=== PATIENT | male | born 1970 | race Caucasian/White ===

== ENCOUNTER 2018-12-12 09:45 | Outpatient (RCR) | payer BC | END 2018-12-15 | LOC: M OT 09:45 | PROVIDERS: ATTEND Emergency Medicine | DX: I63.9 Cerebral infarction, unspecified (principal) ==

== ENCOUNTER 2019-01-04 09:44 | Outpatient (RCR) | payer BC ==
[2019-01-06] MEDS ORDERED: LANTINJ4 SC (19:05)
[2019-01-06] MEDS ORDERED: PLAV1TAB2 PO (19:05)
[2019-01-06] MEDS ORDERED: METF500T13 PO (19:05)
[2019-01-06] MEDS ORDERED: ATOR80TA59 PO (19:05)
[2019-01-06] MEDS ORDERED: IRBE75TA5 PO (19:05)
[2019-01-06] MEDS ORDERED: ASPI1TAB20 PO (19:05)
[2019-01-06] MEDS ORDERED: MAGN400T2 PO (19:05)
[2019-01-06] MEDS ORDERED: FLOM0.4C39 PO (19:05)
[2019-01-06] MEDS ORDERED: DITR5TAB PO (19:05)
[2019-01-06] MEDS ORDERED: D 101000 PO (19:05)
[2019-01-06] MEDS ORDERED: MELA3TAB49 PO (19:05)
[2019-01-06] MEDS ORDERED: ROBA750T4 PO (19:05)
[2019-01-06] MEDS ORDERED: NORV5TAB PO (19:05)
[2019-01-06] MEDS ORDERED: FLUO20CA19 PO (19:05)
[2019-01-06] MEDS ORDERED: LOSA50TA88 PO (21:16)
[2019-01-06] MEDS ORDERED: MELA3TAB41 PO (21:16)
[2019-01-06] MEDS ORDERED: CHOL50002 PO (21:16)
[2019-01-06] MEDS ORDERED: HUMA100I5 SC (21:16)
[2019-01-07] MEDS ORDERED: CLOP75TA2 PO (14:54)
[2019-01-07] MEDS ORDERED: ASPI81TA85 PO (16:20)
== END 2019-01-14 ==
LOC: M OT 09:44
PROVIDERS: ATTEND Emergency Medicine
DX: I63.9 Cerebral infarction, unspecified (principal)

== ENCOUNTER 2019-01-06 18:17 | Observation (INO) | payer BC ==
[~2019-01-06] VITALS: Ht 182.9 cm; Wt 124.8 kg
[2019-01-06 18:56] LABS: BASO % 0.4 % (0.0-1.0); EOS # 0.1 10^3/uL (0.0-0.50); EOS % 1.8 % (0.0-3.0); HEMATOCRIT 38.2 % (42.0-52.0); HEMOGLOBIN 12.8 g/dl (13.5-17.5); LYMPH # 2.9 10^3/uL (1.5-4.5); LYMPH % 37.7 % (24.0-44.0); MEAN CORPUSCULAR HEMOGLOBIN 28.6 pg (27.0-33.0); MEAN CORPUSCULAR HGB CONC 33.5 g/dl (32.0-36.5); MEAN CORPUSCULAR VOLUME 85.3 fl (80.0-96.0); MONO # 0.4 10^3/uL (0.0-0.8); MONO % 5.1 % (0.0-5.0); NEUTROPHILS # 4.2 10^3/uL (1.8-7.7); NEUTROPHILS % 54.5 % (36.0-66.0); PLATELET COUNT, AUTOMATED 212 10^3/uL (150-450); RED BLOOD COUNT 4.48 10^6/uL (4.30-6.10); WHITE BLOOD COUNT 7.7 10^3/uL (4.0-10.0)
[2019-01-06] MEDS ORDERED: METF500T13 PO (19:05)
[2019-01-06] MEDS ORDERED: FLUO20CA19 PO (19:05)
[2019-01-06] MEDS ORDERED: LANTINJ4 SC (19:05)
[2019-01-06] MEDS ORDERED: D 101000 PO (19:05)
[2019-01-06] MEDS ORDERED: MELA3TAB49 PO (19:05)
[2019-01-06] MEDS ORDERED: IRBE75TA5 PO (19:05)
[2019-01-06] MEDS ORDERED: FLOM0.4C39 PO (19:05)
[2019-01-06] MEDS ORDERED: ASPI1TAB20 PO (19:05)
[2019-01-06] MEDS ORDERED: ATOR80TA59 PO (19:05)
[2019-01-06] MEDS ORDERED: MAGN400T2 PO (19:05)
[2019-01-06] MEDS ORDERED: PLAV1TAB2 PO (19:05)
[2019-01-06] MEDS ORDERED: ROBA750T4 PO (19:05)
[2019-01-06] MEDS ORDERED: NORV5TAB PO (19:05)
[2019-01-06] MEDS ORDERED: DITR5TAB PO (19:05)
[2019-01-06 19:07] LABS: INR 1.08; PROTHROMBIN TIME 13.7 SECONDS (11.8-14.0)
[2019-01-06 19:08] LABS: PARTIAL THROMBOPLASTIN TIME 44.9 SECONDS (25.0-38.4)
[2019-01-06 19:25] LABS: BLOOD UREA NITROGEN 21 MG/DL (7-18); CALCIUM LEVEL 8.8 MG/DL (8.5-10.1); CARBON DIOXIDE LEVEL 27 MEQ/L (21-32); CHLORIDE LEVEL 108 MEQ/L (98-107); CK-MB VALUE MASS < 1.0 NG/ML (<3.6); CPK CREATINE PHOSPHOKINASE 122 U/L (39-308); CREATININE FOR GFR 0.92 MG/DL (0.70-1.30); GLOMERULAR FILTRATION RATE > 60.0 (>60); GLUCOSE, FASTING 94 MG/DL (70-100); MB/CK RELATIVE INDEX 0.82 (< OR =4); POTASSIUM SERUM 3.8 MEQ/L (3.5-5.1); SODIUM LEVEL 141 MEQ/L (136-145); TROPONIN I < 0.02 NG/ML (< 0.10)
--- NOTE | 2019-01-06 19:43 | REPVR ---
EXAM: CT Head Without Contrast EXAM DATE/TIME: 01/06/2019 6:36 PM CLINICAL HISTORY: 48 years old, male; Altered mental status/memory loss and visual disturbance; Additional info: CVA - nursing interventions must not delay CT TECHNIQUE: Imaging protocol: Axial computed tomography images of the head without contrast. Radiation optimization: All CT scans at this facility use at least one of these dose optimization techniques: automated exposure control; mA and/or kV adjustment per patient size (includes targeted exams where dose is matched to clinical indication); or iterative reconstruction. Other technique: With associated atrophy. There is no evidence of mass effect. PROTOCOL was implemented. COMPARISON: No relevant prior studies available. FINDINGS: Brain: There is no evidence of intracranial bleed. There is CSF low density involving the right temporal lobe, insular cortex, frontal lobe and right basal ganglia region. This is consistent with a large area of old stroke with associated atrophy. This may be associated with the previous surgery. Ventricles: There is enlargement of the right lateral ventricle consistent with focal atrophy. Bones/joints: There is no evidence of fracture. Sinuses: Visualized sinuses are unremarkable. No fluid levels. Mastoid air cells: There is a sclerosis of the mastoid air cells consistent with previous mastoiditis. Soft tissues: Unremarkable. Vasculature: There is any aneurysm clip at the right distal internal carotid artery. IMPRESSION: 1. Aneurysm clip at the [place] on the right. 2. Large area of old ischemic change with associated atrophy. Electronically signed by: Dale Maguire On 01/06/2019 19:42:49 PM
[2019-01-06] MEDS ORDERED: LEVEMIR (INSULIN DETEMIR) 1 UNITS/0.01ML SC SCH (21:00)
[2019-01-06] MEDS ORDERED: TAMSULOSIN 0.4 MG CAP PO SCH (21:00)
[2019-01-06] MEDS ORDERED: oxyBUTYnin *DITROPAN XL* 5 MG TABCR PO SCH (21:00)
[2019-01-06] MEDS ORDERED: LOSARTAN 50 MG TAB PO SCH (21:00)
[2019-01-06] MEDS ORDERED: MAGNESIUM OXIDE 400 MG TAB (MAG-OX) PO SCH (21:00)
[2019-01-06] MEDS ORDERED: HumaLOG INSULIN (NovoLOG) PER UNIT SC SCH (21:00)
[2019-01-06] MEDS ORDERED: FLUoxetine 20 MG CAP PO SCH (21:00)
[2019-01-06] MEDS ORDERED: CHOL50002 PO (21:16)
[2019-01-06] MEDS ORDERED: LOSA50TA88 PO (21:16)
[2019-01-06] MEDS ORDERED: MELA3TAB41 PO (21:16)
[2019-01-06] MEDS ORDERED: HUMA100I5 SC (21:16)
[2019-01-06] MEDS ORDERED: DEXTROSE 50% 50 ML SYRINGE IV PRN (21:45)
[2019-01-06] MEDS ORDERED: GLUCAGON FOR INJ 1 MG VIAL (J1610) SC PRN (21:45)
[2019-01-06] MEDS ORDERED: METHOCARBAMOL 750 MG TAB PO PRN (21:45)
[2019-01-06] MEDS ORDERED: GLUCOSE 4 GM CHEW TABLET PO PRN (21:45)
[2019-01-06 21:50] VITALS: BP 138/82
--- NOTE | 2019-01-06 22:19 | HPEPDOC ---
General Date of Admission Jan 06, 2019 at 20:47 Date of Service: Jan 06, 2019 Chief Complaint The patient is a 48-year-old male admitted with a reason for visit of TIA. Source: Patient, Old records Exam Limitations: No limitations Severity: Moderate History of Present Illness 48 year ofd male with hypertension, diabetes type 2 insulin dependent, morbid obesity BMI 37.3, restless leg syndrome, vit d deficiency, , hyperlipidemia recent Right MCA territory ischemic stroke in May 2018 with residual left sided hemiparesis, felt to be cardioembolic, has a PFO as per patient , recently had a loop recorder placed on 12/21/18 present to our ED with acute onset bilateral lower visual field vision loss which happened at about 5 pm today. This lasted for about 3 and half hours then his vision came back at around 7:30 pm. He said that he sneezed and then lost his vision and then he had a big yawn in the E when the vision came back. He did not have any increased weakness of his left se or any other weakness. He did not have any palpitation or chest pain. Did not have any slurring of speech or difficulty in understanding. This is his 3rd episode of similar symptoms but the longest in duration. First time it happed in the beginning of May before he had his stroke lasted about 10 mins. second one was about 3 weeks ago lasted about [address] head done during the episode which showed the old stroke in the. right temporal, parietal and occipital lobes in the Right MCA territory distribution but no new events. This was discussed with the stroke centre in [facility] by [facility] ED physician and they were planning to thrombolize hime when his vision came back and it was felt to be a TIA. Consult our neurologist and requested MRI and MRA as per his reccomendations. Pateint is Admitted for TIA. Home Medications Scheduled Amlodipine Besylate (Norvasc) 5 Mg Tablet, 5 MG PO DAILY, (Reported) Aspirin (Aspirin) 325 Mg Tablet, 325 MG PO DAILY, (Reported) Atorvastatin Calcium (Atorvastatin Calcium) 80 Mg Tablet, 80 MG PO DAILY, (Reported) Cholecalciferol (Vitamin D3) (Vitamin D3) 5,000 Unit Capsule, 5,000 UNIT PO DAILY, (Reported) Fluoxetine Hcl (Fluoxetine HCl) 20 Mg Capsule, 20 MG PO QHS, (Reported) Insulin Glargine,Hum.rec.anlog (Lantus Solostar) 100 Unit/1 Ml Insuln.pen, 45 UNIT SC QPM, (Reported) Insulin Lispro (Humalog Kwikpen U-100) 100 Unit/1 Ml Insuln.pen, 1 DOSE SC WM, (Reported) SLIDING SCALE Losartan Potassium (Losartan Potassium) 50 Mg Tablet, 50 MG PO QHS, (Reported) Magnesium Oxide (Magnesium Oxide) 400 Mg Tablet, 400 MG PO QHS, (Reported) Metformin HCl (Metformin HCl) 500 Mg Tablet, 1,000 MG PO QHS, (Reported) Oxybutynin Chloride (Ditropan Xl) 5 Mg Tab.er.24, 5 MG PO QHS, (Reported) Tamsulosin HCl (Flomax) 0.4 Mg Capsule, 0.4 MG PO QHS, (Reported) Scheduled PRN Melatonin (Melatonin) 3 Mg Tablet, 3 MG PO QHS PRN for SLEEP, (Reported) Methocarbamol (Robaxin-750) 750 Mg Tablet, 750 MG PO TID PRN for MUSCLE SPASMS, (Reported) Allergies Coded Allergies: bee venom protein (honey bee) (Verified Allergy, Severe, ANAPHYLAXIS, 01/06/19) Past Medical History Medical History hypertension, diabetes type 2 insulin dependent, morbid obesity BMI 37.3, restless leg syndrome, vit d deficiency, , hyperlipidemia recent Right MCA territory ischemic stroke in May 2018 with residual left sided hemiparesis, Surgical History loop recorder placement on 12/21/18 Attempted Mechanical thrombectomy for stroke in 2017. Balloon angioplasty and stent placement seems to be in the right distal internal carotid artery Hernia surgery as a child Family History Significant Family History: Cancer (father), Diabetes (mother), Heart disease (father and mother) Social History * Smoker: non-smoker Alcohol: Denies Drugs: denies A-FIB/CHADSVASC A-FIB History Current/History of A-Fib/PAF?: No Review of Systems Constitutional: Denies: Chills, Fever, Night Sweats Eyes: Reports: Vision change (transient loss of lower field of vision in both eyes); Denies: Pain ENT: Denies: Head Aches, Ear Pain, Dysphagia Skin: Denies: Rash, Lesions, Breakdown Pulmonary: Denies: Dyspnea, Cough Cardiovascular: Denies: Chest Pain, Palpitations, Orthopnea, Paroxysmal Noc. Dyspnea, Lt Headedness Gastrointestinal: Denies: Nausea, Vomiting, Abdominal Pain, Diarrhea Genitourinary: Denies: Dysuria, Frequency, Incontinence, Retention Hematologic: Denies: Bruising, Bleeding Excessively Musculoskeletal: Reports: Muscle Pain, Spasms Neurological: Reports: Weakness (left side left upper extremity more than left lower extremity), Numbness; Denies: Change in speech, Confusion, Seizures Psych: Reports: Anxiety Physical Examination General Exam: Positive: Alert, Cooperative, No Acute Distress Eye Exam: Positive: PERRLA, Conjunctiva & lids normal, EOMI; Negative: Sclera icteric ENT Exam: Positive: Atraumatic, Mucous membr. moist/pink, Pharynx Normal Neck Exam: Positive: Supple; Negative: JVD, thyromegaly Chest Exam: Positive: Clear to auscultation, Normal air movement, Other (a bruise noted on the precordial area related to the loop recorder placement) Heart Exam: Positive: Rate Normal, Regular Rhythm, Normal S1, Normal S2; Negative: Murmurs, Rubs Telemetry: Positive: No significant arrhythmia Abdomen Exam: Positive: Normal bowel sounds, Soft; Negative: Tenderness, Hepatospenomegaly Extremity Exam: Positive: Normal pulses; Negative: Clubbing, Cyanosis, Edema Skin Exam: Positive: Nl turgor and temperature; Negative: Breakdown, Lesion Neuro Exam: Positive: Normal Speech, Normal Tone, Other (left power upper 3/5 , left lower power 4/5, left foot drop, ) Psych Exam: Positive: Anxiety, Memory Intact, Oriented x 3 Vital Signs Vital Signs Date Time Temp Pulse Resp B/P (MAP) Pulse Ox O2 Delivery O2 Flow Rate FiO2 01/06/19 19:32 68 94 01/06/19 19:30 138/86 (103) 01/06/19 19:02 20 01/06/19 18:18 97.6 Room Air Laboratory Data Labs 24H Laboratory Tests 2 01/06/19 18:43: Immature Granulocyte % (Auto) 0.5, White Blood Count 7.7, Red Blood Count 4.48, Hemoglobin 12.8L, Hematocrit 38.2L, Mean Corpuscular Volume 85.3, Mean Corpuscular Hemoglobin 28.6, Mean Corpuscular Hemoglobin Concent 33.5, Red Cell Distribution Width 13.6, Platelet Count 212, Neutrophils (%) (Auto) 54.5, Lymph ocytes (%) (Auto) 37.7, Monocytes (%) (Auto) 5.1H, Eosinophils (%) (Auto) 1.8, Basophils (%) (Auto) 0.4, Neutrophils # (Auto) 4.2, Lymphocytes # (Auto) 2.9, Monocytes # (Auto) 0.4, Eosinophils # (Auto) 0.1, Basophils # (Auto) 0.0, Nucleated Red Blood Cells % (auto) 0.0, Prothrombin Time 13.7, Prothromb Time International Ratio 1.08, Activated Partial Thromboplast Time 44.9H, Anion Gap 6L, Glomerular Filtration Rate > 60.0, Blood Urea Nitrogen 21H, Creatinine 0.92, Sodium Level 141, Potassium Level 3.8, Chloride Level 108H, Carbon Dioxide Level 27, Calcium Level 8.8, Total Creatine Kinase 122, Creatine Kinase MB < 1.0, Creatine Kinase MB Relative Index 0.82, Troponin I < 0.02 01/06/19 18:53: Bedside Glucose (Misc Panel) 90 01/06/19 21:16: Bedside Glucose (Misc Panel) 83 CBC/BMP Laboratory Tests 01/06/19 18:43 Red Blood Count 4.48, Mean Corpuscular Volume 85.3, Mean Corpuscular Hemoglobin 28.6, Mean Corpuscular Hemoglobin Concent 33.5, Red Cell Distribution Width 13.6, Neutrophils (%) (Auto) 54.5, Lymphocytes (%) (Auto) 37.7, Monocytes (%) (Auto) 5.1 H, Eosinophils (%) (Auto) 1.8, Basophils (%) (Auto) 0.4, Neutrophils # (Auto) 4.2, Lymphocytes # (Auto) 2.9, Monocytes # (Auto) 0.4, Eosinophils # (Auto) 0.1, Basophils # (Auto) 0.0, Calcium Level 8.8, Total Creatine Kinase 122 Assessment/Plan 48 year ofd male with hypertension, diabetes type 2 insulin dependent, morbid obesity BMI 37.3, restless leg syndrome, vit d deficiency, , hyperlipidemia recent Right MCA territory ischemic stroke in May 2018 with residual left sided hemiparesis, felt to be cardioembolic, has a PFO as per patient , recently had a loop recorder placed on 12/21/18 present to our ED with acute onset bilateral lower visual field vision loss which happened at about 5 pm today. This lasted for about 3 and half hours then his vision came back at around 7:30 pm. He said that he sneezed and then lost his vision and then he had a big yawn in the E when the vision came back. He did not have any increased weakness of his left se or any other weakness. He did not have any palpitation or chest pain. Did not have any slurring of speech or difficulty in understanding. This is his 3rd episode of similar symptoms but the longest in duration. First time it happed in the beginning of May before he had his stroke lasted about 10 mins. second one was about 3 weeks ago lasted about [address] head done during the episode which showed the old stroke in the. right temporal, parietal and occipital lobes in the Right MCA territory distribution but no new events. This was discussed with the stroke centre in [facility] by [facility] ED physician and they were planning to thrombolize hime when his vision came back and it was felt to be a TIA. Consult our neurologist and requested MRI and MRA as per his reccomendations. Pateint is Admitted for TIA. TIA looks like he was having quadrantopia he could not say whether right side or left side he said all of the lower visual field was lost possibly from the optic tract will get MRI and MRA Consult neurology continue ASA, plavix, statin. Monitor on telemetry Right MCA territory stroke with a core infarct in the right basal ganglia with a large area of penumbra With residual left hemiparesis Happened in May 2019 s/p unsuccessful thrombectomy s/p angioplasty and stent placement in th distal internal carotid artery thought to be cardioembolic has a recent loop recorder implantation on 12/21/18 patient says he has a PFO. he did get a ZITA this month on 12/18/18. No records available at present. Diabetes type 2, insulin dependent levemir and lispro hold metformin Hypertension continue home meds Hyperlipidemia continue statin Plan / VTE VTE Prophylaxis Ordered?: Yes COTY WELLER MD Jan 06, 2019 22:19
[2019-01-07 04:00] VITALS: BP 115/68
[2019-01-07 05:21] LABS: BASO % 0.5 % (0.0-1.0); EOS # 0.2 10^3/uL (0.0-0.50); EOS % 2.6 % (0.0-3.0); HEMATOCRIT 36.4 % (42.0-52.0); LYMPH # 3.3 10^3/uL (1.5-4.5); LYMPH % 42.3 % (24.0-44.0); MEAN CORPUSCULAR HEMOGLOBIN 27.6 pg (27.0-33.0); MEAN CORPUSCULAR VOLUME 83.9 fl (80.0-96.0); MONO # 0.5 10^3/uL (0.0-0.8); MONO % 6.4 % (0.0-5.0); NEUTROPHILS # 3.8 10^3/uL (1.8-7.7); NEUTROPHILS % 47.9 % (36.0-66.0); PLATELET COUNT, AUTOMATED 207 10^3/uL (150-450); RED BLOOD COUNT 4.34 10^6/uL (4.30-6.10); WHITE BLOOD COUNT 7.8 10^3/uL (4.0-10.0)
[2019-01-07 05:42] LABS: BLOOD UREA NITROGEN 20 MG/DL (7-18); CARBON DIOXIDE LEVEL 27 MEQ/L (21-32); CHLORIDE LEVEL 108 MEQ/L (98-107); GLOMERULAR FILTRATION RATE > 60.0 (>60); GLUCOSE, FASTING 85 MG/DL (70-100); POTASSIUM SERUM 3.6 MEQ/L (3.5-5.1); SODIUM LEVEL 142 MEQ/L (136-145)
--- NOTE | 2019-01-07 07:04 | ECGEPIP ---
[facility] - ED Test Date: 2019-01-06 Pat Name: MATA COLLAZO Department: Room: - Gender: Male Manager Hospice: TC : 1970 Requested By: MARY Teixeira Order Number: [id number] Reading MD: Tino Rios Measurements Intervals [place] Rate: 68 P: 39 WV: 232 QRS: 20 QRSD: 96 T: 42 QT: 386 QTc: 412 Interpretive Statements SINUS RHYTHM WITH FIRST DEGREE AV BLOCK NO PRIORS FOR COMPARISON Electronically Signed on 01-07-2019 7:04:25 EDT by Tino Rios
[2019-01-07] MEDS: HumaLOG INSULIN (NovoLOG) PER UNIT SC SCH ×2 (07:30→12:00)
--- NOTE | 2019-01-07 07:52 | REP ---
Portable chest, 06:37 p.m., single AP view with the patient sitting: There are no comparisons. The lung ledezma are clear. The cardiac size is normal. The leslie, mediastinum, and skeletal structures are unremarkable. Impression: Negative portable chest. A loop recorder is incidentally identified. Electronically Signed by Joni Sanchez MD 01/07/2019 07:44 A
[2019-01-07 08:00] VITALS: BP 114/66
[2019-01-07 09:00] VITALS: BP 114/66
[2019-01-07] MEDS ORDERED: ATORVASTATIN 20 MG TAB PO SCH (09:00)
[2019-01-07] MEDS ORDERED: ASPIRIN 325 MG TAB PO SCH (09:00)
[2019-01-07] MEDS ORDERED: ENOXAPARIN 40 MG/0.4 ML SYRINGE (J1650) SC SCH (09:00)
[2019-01-07] MEDS ORDERED: amLODIPine 5 MG TAB PO SCH (09:00)
--- NOTE | 2019-01-07 13:04 | REPVR ---
EXAM: MR Head Without Contrast EXAM DATE/TIME: 01/07/2019 12:33 PM CLINICAL HISTORY: 48 years old, male; Alteration of consciousness and altered mental status/memory loss; Transient alteration of awareness; Confusion or disorientation; Prior surgery; Surgery date: 1-6 months; Surgery type: Coil in brain, cleared for mri; Patient HX: Hxhx multiple CVA; Additional info: TIA TECHNIQUE: Imaging protocol: MR of the head without contrast. COMPARISON: CT Head without contrast 01/06/2019 6:28 PM FINDINGS: Brain: There is high signal abnormality within the right basal ganglia on the diffusion images. It is difficult to distinguish acute/subacute infarct from chronic gliotic changes with T2 shine through. There are scattered nonspecific foci of high signal abnormality in the lawton radiata and centrum semiovale. These are best seen on the flair images. These foci may represent areas of gliosis, demyelination, and/or chronic ischemic change. There is moderate encephalomalacia in the right basal ganglia, correlate with prior hemorrhage or infarct. Ventricles: Normal. No ventriculomegaly. Bones/joints: Unremarkable. Soft tissues: Normal. Sinuses: Normal as visualized. No acute sinusitis. Mastoid air cells: Normal as visualized. No mastoid effusion. Orbits: Unremarkable. Middle cerebral arteries: There is a stent within the right middle cerebral artery, please correlate with surgical history. IMPRESSION: 1. There is high signal abnormality within the right basal ganglia on the diffusion images. It is difficult to distinguish acute/subacute infarct from chronic gliotic changes with T2 shine through. Direct comparison to prior studies would help distinguish these two possibilities. 2. There are scattered nonspecific foci of high signal abnormality in the [place] radiata and centrum semiovale. These are best seen on the flair images. These foci may represent areas of gliosis, demyelination, and/or chronic ischemic change. 3. There is moderate encephalomalacia in the right basal ganglia, correlate with prior hemorrhage or infarct. 4. There is a stent within the right middle cerebral artery, please correlate with surgical history. Electronically signed by: Hernandez Monsivais On 01/07/2019 13:04:12 PM
--- NOTE | 2019-01-07 13:07 | IPNPDOC ---
Text Note Date of Service The patient was seen on 01/07/19. NOTE S: patient states back to baseline and wants to go home. Awaiting neurology consult. Being seen for TIA and HTN. Blood pressures improved. no further visual deficits. O: vitals as below General: pleasant, NAD AAOx3 HEENT: no vision field deficits, subtle left lower mouth droop(chronic per patient) HRRR LCTA Skin: bruise along left ant pectoralis muscle from loop recorder implantation. Ext: left upper extremity flaccid (chronic); RUE, bilateral lower extremity strength intact A/P: TIA - OBSERVATION Await neuro consult and if agrees, d/c home today as patient is being aggressively worked up as outpatient MRI/MRA pending Continue ASA,Plavix,statin S/P Right MCA territory stroke with a core infarct in the right basal ganglia with a large area of penumbra With residual left hemiparesis - occured May 2018 s/p unsuccessful thrombectomy s/p angioplasty and stent placement in th distal internal carotid artery thought to be cardioembolic has a recent loop recorder implantation on 12/21/18 patient says he has a PFO. he did get a ZIAT this month on 12/18/18. Outpatient work up in progress. 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 well controlled with levemir, SSI; hold metformin Item Value Date Time Bedside Glucose (Misc Panel) 96 MG/DL 01/07/19 1142 Bedside Glucose (Misc Panel) 145 MG/DL H 01/06/19 2303 Bedside Glucose (Misc Panel) 83 MG/DL 01/06/19 2116 Bedside Glucose (Misc Panel) 90 MG/DL 01/06/19 1853 Hypertension continue home meds with hold parameters to avoid hypotension Hyperlipidemia Anticipate d/c home today if okay with nuerology VS,Fishbone, I+O VS, Fishbone, I+O Laboratory Tests 01/06/19 18:43 Red Blood Count 4.48, Mean Corpuscular Volume 85.3, Mean Corpuscular Hemoglobin 28.6, Mean Corpuscular Hemoglobin Concent 33.5, Red Cell Distribution Width 13.6, Neutrophils (%) (Auto) 54.5, Lymphocytes (%) (Auto) 37.7, Monocytes (%) (Auto) 5.1 H, Eosinophils (%) (Auto) 1.8, Basophils (%) (Auto) 0.4, Neutrophils # (Auto) 4.2, Lymphocytes # (Auto) 2.9, Monocytes # (Auto) 0.4, Eosinophils # (Auto) 0.1, Basophils # (Auto) 0.0, Calcium Level 8.8, Total Creatine Kinase 122 01/07/19 04:42 Red Blood Count 4.34, Mean Corpuscular Volume 83.9, Mean Corpuscular Hemoglobin 27.6, Mean Corpuscular Hemoglobin Concent 33.0, Red Cell Distribution Width 13.4, Neutrophils (%) (Auto) 47.9, Lymphocytes (%) (Auto) 42.3, Monocytes (%) (A uto) 6.4 H, Eosinophils (%) (Auto) 2.6, Basophils (%) (Auto) 0.5, Neutrophils # (Auto) 3.8, Lymphocytes # (Auto) 3.3, Monocytes # (Auto) 0.5, Eosinophils # (Auto) 0.2, Basophils # (Auto) 0.0, Calcium Level 9.0 Vital Signs Date Time Temp Pulse Resp B/P (MAP) Pulse Ox O2 Delivery O2 Flow Rate FiO2 01/07/19 09:00 61 114/66 01/07/19 08:00 97.5 16 96 01/06/19 18:18 Room Air I&O- Last 24 Hours up to 6 AM 01/07/19 06:00 Intake Total 360 ml Output Total 0 ml Balance 360 ml FIDENCIO MCCLOUD DO Jan 07, 2019 12:52
--- NOTE | 2019-01-07 13:16 | REPVR ---
EXAM: MR Angiogram Head Without Contrast, Arteries EXAM DATE/TIME: 01/07/2019 12:33 PM CLINICAL HISTORY: 48 years old, male; Cognitive deficit; Type not specified; Prior surgery; Surgery date: 1-6 months; Surgery type: Coil in brain cleared for scan; Patient HX: HX multiple CVA; Additional info: TIA TECHNIQUE: Imaging protocol: MR angiogram head without contrast. Exam focused on the arteries. COMPARISON: CT Head without contrast 01/06/2019 6:28 PM FINDINGS: Right internal carotid artery: There is a high grade stenosis of the supraclinoid right internal carotid artery just proximal to the right right middle cerebral artery stent. Right anterior cerebral artery: Unremarkable. No occlusion or significant stenosis. No aneurysm. Right middle cerebral artery: There is diminished flow signal within the right middle cerebral artery which corresponds to patient's known stent. There is asymmetric decreased flow signal throughout the distal right middle cerebral artery branches. This may be chronic considering the extensive encephalomalacia within the right basal ganglia/middle cerebral artery territory. Right posterior cerebral artery: Unremarkable. No occlusion or significant stenosis. No aneurysm. Right vertebral artery: Unremarkable. No occlusion or significant stenosis. No aneurysm. Left internal carotid artery: Unremarkable. Intracranial segment is patent with no significant stenosis. No aneurysm. Left anterior cerebral artery: Unremarkable. No occlusion or significant stenosis. No aneurysm. Left middle cerebral artery: Unremarkable. No occlusion or significant stenosis. No aneurysm. Left posterior cerebral artery: Unremarkable. No occlusion or significant stenosis. No aneurysm. Left vertebral artery: The patient is left vertebral artery dominant. Basilar artery: Unremarkable. No occlusion or significant stenosis. No aneurysm. Brain: There is encephalomalacia in the right basal ganglia. IMPRESSION: 1. There is diminished flow signal within the right middle cerebral artery which corresponds to patient's known stent. 2. There is asymmetric decreased flow signal throughout the distal right middle cerebral artery branches. This may be chronic considering the extensive encephalomalacia within the right basal ganglia/middle cerebral artery territory. Direct comparison to prior angiogram study is recommended. The possibility that this is an acute finding cannot be excluded based on this single exam. 3. There is a high grade stenosis of the supraclinoid right internal carotid artery just proximal to the right right middle cerebral artery stent. Direct comparison to prior studies is recommended. 4. There is encephalomalacia in the right basal ganglia. Please refer to contemporaneous report of brain MRI for additional details. Electronically signed by: Hernandez Monsivais On 01/07/2019 13:16:24 PM
[2019-01-07] MEDS ORDERED: HumaLOG INSULIN (NovoLOG) PER UNIT SC ONE (14:00)
[2019-01-07] MEDS ORDERED: CLOP75TA2 PO (14:54)
--- NOTE | 2019-01-07 15:37 | DS.PDOC ---
Discharge Summary General Date of Admission Jan 06, 2019 at 20:47 Date of Discharge 01/07/19 Attending Physician: FIDENCIO MCCLOUD DO Specialist/Consultants Involve: MICHAEL HERRING MD Discharge Summary PROCEDURES PERFORMED DURING STAY: none ADMITTING DIAGNOSES: TIA s/p Right MCA territory stroke with a core infarct in the right basal ganglia with a large area of penumbra - prior to admission PFO Diabetes type 2, insulin dependent Hypertension Hyperlipidemia DISCHARGE DIAGNOSES: 1. TIA 2. history of Right MCA territory stroke 3. Diabetes on [facility] insulin, with no hyperglycemia, no hypoglycemia COMPLICATIONS/CHIEF COMPLAINT: TIA. HISTORY OF PRESENT ILLNESS: 48 yo male with history of PFO and CVA 05/2018, who lost lower have of his vision for 3.5 hours and spontaneously returned prior to receiving tPA. He states first episode occurred in may 2018, second similar episode lasting under 30 minutes occurred 3 weeks ago. See H&P for furt her details. HOSPITAL COURSE: Patient was placed in observation with serial neuro checks. prior to admission, his symptoms resolved and did not reoccur. He had CT scan and MRI,MRA performed (see below). Neurology consulted and recommended ASA/Plavix and advised that he could be discharge to follow up with his outpatient neurologist. Patient had been on 81mg ASA prior to admission. Patient had outpatient neurology/cardiology plan of care for continued workup of his CVA. Patient has loop recorder. He is being discharge in stable and improved condition and will follow up with outpatient nuerology, cardiology and PCP for continued CVA workup. DISCHARGE MEDICATIONS: Please see below. ALLERGIES: Please see below. PHYSICAL EXAMINATION ON DISCHARGE: VITAL SIGNS: Please see below. General: pleasant, NAD AAOx3 HEENT: no vision field deficits, subtle left lower mouth droop(chronic per patient) HRRR LCTA Skin: bruise along left ant pectoralis muscle from loop recorder implantation. Ext: left upper extremity flaccid (chronic); RUE, bilateral lower extremity strength intact LABORATORY DATA: Please see below. IMAGING: CT head done during the episode which showed the old stroke in the right temporal, parietal and occipital lobes in the Right MCA territory distribution but no new events. MRI brain IMPRESSION: 1. There is high signal abnormality within the right basal ganglia on the diffusion images. It is difficult to distinguish acute/subacute infarct from chronic gliotic changes with T2 shine through. Direct comparison to prior studies would help distinguish these two possibilities. 2. There are scattered nonspecific foci of high signal abnormality in the lawton radiata and centrum semiovale. These are best seen on the flair images. These foci may represent areas of gliosis, demyelination, and/or chronic ischemic change. 3. There is moderate encephalomalacia in the right basal ganglia, correlate with prior hemorrhage or infarct. 4. There is a stent within the right middle cerebral artery, please correlate with surgical history. MRA BRAIN: 1. There is diminished flow signal within the right middle cerebral artery which corresponds to patient's known stent. 2. There is asymmetric decreased flow signal throughout the distal right middle cerebral artery branches. This may be chronic considering the extensive encephalomalacia within the right basal ganglia/middle cerebral artery territory. Direct comparison to prior angiogram study is recommended. The possibility that this is an acute finding cannot be excluded based on this single exam. 3. There is a high grade stenosis of the supraclinoid right internal carotid artery just proximal to the right right middle cerebral artery stent. Direct comparison to prior studies is recommended. 4. There is encephalomalacia in the right basal ganglia. Please refer to contemporaneous report of brain MRI for additional details. PROGNOSIS: unknown ACTIVITY:as tolerated DIET:regular DISCHARGE PLAN:d/c home DISPOSITION: . DISCHARGE INSTRUCTIONS: 1. follow up with neurology this week 2. follow up with PCP in 1-2 weeks to coordinate care 3. Follow up with cardiology as prior scheduled ITEMS TO FOLLOWUP ON ON OUTPATIENT: 1. loop records (implanted prior to admission) DISCHARGE CONDITION: stable TIME SPENT ON DISCHARGE:30 minutes Vital Signs/I&Os Vital Signs Date Time Temp Pulse Resp B/P (MAP) Pulse Ox O2 Delivery O2 Flow Rate FiO2 01/07/19 09:00 61 114/66 01/07/19 08:00 97.5 16 96 01/06/19 18:18 Room Air I&O- Last 24 Hours up to 6 AM 01/07/19 06:00 Intake Total 360 ml Output Total 0 ml Balance 360 ml Laboratory Data Labs 24H Laboratory Tests 2 01/06/19 18:43: Immature Granulocyte % (Auto) 0.5, White Blood Count 7.7, Red Blood Count 4.48, Hemoglobin 12.8L, Hematocrit 38.2L, Mean Corpuscular Volume 85.3, Mean Corpuscular Hemoglobin 28.6, Mean Corpuscular Hemoglobin Concent 33.5, Red Cell Distribution Width 13.6, Platelet Count 212, Neutrophils (%) (Auto) 54.5, Lymphocytes (%) (Auto) 37.7, Monocytes (%) (Auto) 5.1H, Eosinophils (%) (Auto) 1.8, Basophils (%) (Auto) 0.4, Neutrophils # (Auto) 4.2, Lymphocytes # (Auto) 2.9, Monocytes # (Auto) 0.4, Eosinophils # (Auto) 0.1, Basophils # (Auto) 0.0, Nucleated Red Blood Cells % (auto) 0.0, Prothrombin Time 13.7, Prothromb Time International Ratio 1.08, Activated Partial Thromboplast Time 44.9H, Anion Gap 6L, Glomerular Filtration Rate > 60.0, Blood Urea Nitrogen 21H, Creatinine 0.92, Sodium Level 141, Potassium Level 3.8, Chloride Level 108H, Carbon Dioxide Level 27, Calcium Level 8.8, Total Creatine Kinase 122, Creatine Kinase MB < 1.0, Creatine Kinase MB Relative Index 0.82, Troponin I < 0.02 01/06/19 18:53: Bedside Glucose (Misc Panel) 90 01/06/19 21:16: Bedside Glucose (Misc Panel) 83 01/06/19 23:03: Bedside Glucose (Misc Panel) 145H 01/07/19 04:42: Immature Granulocyte % (Auto) 0.3, White Blood Count 7.8, Red Blood Count 4.34, Hemoglobin 12.0L, Hematocrit 36.4L, Mean Corpuscular Volume 83.9, Mean Corpuscular Hemoglobin 27.6, Mean Corpuscular Hemoglobin Concent 33.0, Red Cell Distribution Width 13.4, Platelet Count 207, Neutrophils (%) (Auto) 47.9, Lymphocytes (%) (Auto) 42.3, Monocytes (%) (Auto) 6.4H, Eosinophils (%) (Auto) 2.6, Basophils (%) (Auto) 0.5, Neutrophils # (Auto) 3.8, Lymphocytes # (Auto) 3.3, Monocytes # (Auto) 0.5, Eosinophils # (Auto) 0.2, Basophils # (Auto) 0.0, Nucleated Red Blood Cells % (auto) 0.0, Anion Gap 7L, Glomerular Filtration Rate > 60.0, Blood Urea Nitrogen 20H, Creatinine 0.90, Sodium Level 142, Potassium Level 3.6, Chloride Level 108H, Carbon Dioxide Level 27, Calcium Level 9.0 01/07/19 11:42: Bedside Glucose (Misc Panel) 96 CBC/BMP Laboratory Tests 01/06/19 18:43 Red Blood Count 4.48, Mean Corpuscular Volume 85.3, Mean Corpuscular Hemoglobin 28.6, Mean Corpuscular Hemoglobin Concent 33.5, Red Cell Distribution Width 13.6, Neutrophils (%) (Auto) 54.5, Lymphocytes (%) (Auto) 37.7, Monocytes (%) (Auto) 5.1 H, Eosinophils (%) (Auto) 1.8, Basophils (%) (Auto) 0.4, Neutrophils # (Auto) 4.2, Lymphocytes # (Auto) 2.9, Monocytes # (Auto) 0.4, Eosinophils # (Auto) 0.1, Basophils # (Auto) 0.0, Calcium Level 8.8, Total Creatine Kinase 122 01/07/19 04:42 Red Blood Count 4.34, Mean Corpuscular Volume 83.9, Mean Corpuscular Hemoglobin 27.6, Mean Corpuscular Hemoglobin Concent 33.0, Red Cell Distribution Width 13.4, Neutrophils (%) (Auto) 47.9, Lymphocytes (%) (Auto) 42.3, Monocytes (%) (Auto) 6.4 H, Eosinophils (%) (Auto) 2.6, Basophils (%) (Auto) 0.5, Neutrophils # (Auto) 3.8, Lymphocytes # (Auto) 3.3, Monocytes # (Auto) 0.5, Eosinophils # (Auto) 0.2, Basophils # (Auto) 0.0, Calcium Level 9.0 FSBS Laboratory Tests Test 01/06/19 18:53 01/06/19 21:16 01/06/19 23:03 01/07/19 11:42 Range/Units Bedside Glucose (Misc Panel) 90 83 145 96 70-105 MG/DL Discharge Medications Scheduled Amlodipine Besylate (Norvasc) 5 Mg Tablet, 5 MG PO DAILY, (Reported) Aspirin (Aspirin) 325 Mg Tablet, 325 MG PO DAILY, (Reported) Atorvastatin Calcium (Atorvastatin Calcium) 80 Mg Tablet, 80 MG PO DAILY, (Reported) Cholecalciferol (Vitamin D3) (Vitamin D3) 5,000 Unit Capsule, 5,000 UNIT PO DAILY, (Reported) Clopidogrel Bisulfate (Clopidogrel) 75 Mg Tablet, 75 MG PO DAILY Fluoxetine Hcl (Fluoxetine HCl) 20 Mg Capsule, 20 MG PO QHS, (Reported) Insulin Glargine,Hum.rec.anlog (Lantus Solostar) 100 Unit/1 Ml Insuln.pen, 45 UNIT SC QPM, (Reported) Insulin Lispro (Humalog Kwikpen U-100) 100 Unit/1 Ml Insuln.pen, 1 DOSE SC WM, (Reported) SLIDING SCALE Losartan Potassium (Losartan Potassium) 50 Mg Tablet, 50 MG PO QHS, (Reported) Magnesium Oxide (Magnesium Oxide) 400 Mg Tablet, 400 MG PO QHS, (Reported) Metformin HCl (Metformin HCl) 500 Mg Tablet, 1,000 MG PO QHS, (Reported) Oxybutynin Chloride (Ditropan Xl) 5 Mg Tab.er.24, 5 MG PO QHS, (Reported) Tamsulosin HCl (Flomax) 0.4 Mg Capsule, 0.4 MG PO QHS, (Reported) Scheduled PRN Melatonin (Melatonin) 3 Mg Tablet, 3 MG PO QHS PRN for SLEEP, (Reported) Methocarbamol (Robaxin-750) 750 Mg Tablet, 750 MG PO TID PRN for MUSCLE SPASMS, (Reported) Allergies Coded Allergies: bee venom protein (honey bee) (Verified Allergy, Severe, ANAPHYLAXIS, 01/06/19) FIDENCIO MCCLOUD DO Jan 07, 2019 15:00
[2019-01-07] MEDS ORDERED: CLOPIDOGREL 75 MG TAB PO ONE (16:00)
[2019-01-07] MEDS ORDERED: ASPI81TA85 PO (16:20)
[2019-01-07] MEDS ORDERED: HumaLOG INSULIN (NovoLOG) PER UNIT SC SCH (17:30)
--- NOTE | 2019-01-09 08:37 | CR ---
DATE OF CONSULTATION: 01/08/2019 REFERRING PROVIDER: Dr. Suzanne Armas REASON FOR CONSULTATION: Suspected transient ischemic attack (TIA). HISTORY OF PRESENT ILLNESS: Joni Silverman is a 48-year-old male with a history of recent ischemic stroke in May 2018 involving the right middle cerebral artery (MCA) distribution, status post right MCA stent placement for high-grade stenosis secondary to atherosclerosis. Patient was thought to have possible vessel stroke versus cardioembolic stroke given history of stroke risk factor including patent foramen ovale (PFO). The patient has been on aspirin 81 mg but was told to stop Plavix a week prior to 12/21/2018 for loop recorder placement. The patient was not placed back on his Plavix. He was not instructed to do so, he states. The patient continues to have high-grade right internal carotid artery (ICA) stenosis just proximal to the right MCA. The patient will need to remain on dual antiplatelet therapy. He will be restarted on low-dose aspirin and Plavix 75 mg daily. Patient follows with neurosurgery at [facility]. The patient presented with symptoms of sudden vision loss in the lower visual ledezma of both eyes. The patient cannot recall whether he had one quadrant specifically worse than another. Symptoms lasted between 4:50 up to a little before 8 p.m. Patient's symptoms suddenly cleared up after he took a big yawn and heard his ears pop. The patient did have an MRI of the brain that revealed no acute stroke. Only evidence of an old prior stroke with significant encephalomalacia within the right cerebral hemisphere in the MCA distribution was noted. The patient's MR angiogram again revealed the stenosis listed above. Patient has returned back to baseline. He has significant left upper extremity hemiparesis greater than lower extremity hemiparesis. He is participating in physical therapy multiple days a week and does home physical therapy on his own. The patient states that he had similar symptoms of vision loss with this prior stroke. It is quite possible the mechanism of sneezing caused a transient episode of ischemia due to further hypoperfusion of the prior stroke area. Involvement of the superior parietal lobes can result in quadrantanopia on the contralateral side affecting both eyes. Patient would benefit from having complete visual field testing in the future. REVIEW OF SYSTEMS: 14-point review of systems obtained and is negative except as per history of present illness (HPI). Patient denies any aphasia, dysarthria, or any progressive weakness or numbness or ataxia since the last stroke. HOME MEDICATIONS: - Norvasc 5 mg by mouth daily - aspirin 325 mg by mouth daily - atorvastatin 80 mg by mouth daily - cholecalciferol/vitamin D 5000 international units by mouth daily - fluoxetine 20 mg by mouth nightly - insulin sliding scale - losartan 50 mg by mouth nightly - magnesium 400 mg by mouth nightly - metformin 1000 mg by mouth nightly - oxybutynin 5 mg by mouth nightly - tamsulosin 0.4 mg by mouth nightly - melatonin 3 mg by mouth nightly as needed - methocarbamol 750 mg three times a day as needed ALLERGIES: Bee venom. PAST MEDICAL HISTORY: Hypertension, type 2 diabetes with insulin dependence, morbid obesity, restless leg syndrome, vitamin D deficiency, hyperlipidemia, right MCA ischemic stroke May 2018, residual left-sided hemiparesis. PAST SURGICAL HISTORY: Loop recorder placement 12/21/2018. An attempted mechanical thrombectomy for stroke May 2018. Balloon angioplasty and stent placement in the right MCA. FAMILY HISTORY: Noncontributory. SOCIAL HISTORY: The patient denies use of any tobacco, alcohol, or illicit drugs. PHYSICAL EXAMINATION: Blood pressure is 114/66, pulse rate 61, respiratory rate is 16, temperature 97.5 degrees Fahrenheit, oxygenation is 96% on room air. Patient is awake, alert, oriented to person, place, and time. Speech language, comprehension, and repetition are intact. Pupils are 3 mm round and reactive to light. Extraocular movements are intact in all directions without nystagmus. Sensation in V1, V2, V3 is intact to light touch. No facial asymmetry to activation. Palate elevates symmetrically. Tongue is midline. No weakness of sternocleidomastoids bilaterally. Hearing is subjectively equal to finger rub. Patient has subtle facial asymmetry involving the left lower face, baseline from prior stroke. The patient has normal strength in the right upper and lower extremity, including proximal and distal muscles tested. Patient has significant weakness in all muscles of the left upper extremity, most muscles grade 2+ to 3-. The patient has reasonable strength in his left iliopsoas grade 4/5, quadriceps 4/5, tibialis anterior 4+. Patient has a foot inversion contracture; he wears an ankle-foot orthosis (AFO) brace for foot drop. Deep tendon reflexes are hyper-reflexic on the left side compared to the right. Babinski sign is positive on the left. Sensory is intact to light touch in all four extremities. Coordination: No ataxia or dysmetria of the right side. Gait deferred. ASSESSMENT: 48-year-old male with past history of right MCA severe stenosis status post stent with residual high-grade right ICA stenosis proximal to the right MCA stent placement. Patient presents with transient vision loss in the lower quadrants of the visual ledezma; unclear whether this is quadrantanopia, most likely in setting of hypoperfusion to the already affected stroke region of the right cerebral hemisphere, likely the parietal lobe. Less likely, this is related to the optic chiasm given negative MRI in that region. PLAN: 1. Recommend resuming Plavix 75 mg by mouth daily, reducing aspirin to 81 mg daily. Recommend continuation of statin therapy. Continue physical therapy (PT)/occupational therapy (OT) evaluation. Patient should followup with ophthalmology as an outpatient. 2. Patient should also followup with his neurosurgeon and primary care provider as an outpatient. Patient can be seen in the neurology clinic 6-8 weeks after discharge.
== END 2019-01-07 17:25 | disposition home or self-care (01) ==
LOC: M ED 18:17 → M ED INP 20:47 → M PCU 21:55
PROVIDERS: ADMIT Internal Medicine Nephrology; ATTEND Internal Medicine Nephrology
DX: G45.9 Transient cerebral ischemic attack, unspecified (principal); E11.9 Type 2 diabetes mellitus without complications; Z79.4 Long term (current) use of insulin; Z79.82 Long term (current) use of aspirin; Z79.899 Other long term (current) drug therapy; Z91.030 Bee allergy status
CPT/HCPCS: 36415; 70450; 70544; 70551; 71045; 80048; 82550; 82553; 84484; 85025; 85610; 85730; 86850; 86900; 86901; 93005; 93041; 94760; 96372; 99285; J1650